=== PATIENT | male | born 1995 | race Caucasian/White ===

== ENCOUNTER 2023-09-26 11:47 | Observation (INO) | payer BC ==
[~2023-09-26] VITALS: Ht 165.1 cm; Wt 55.4 kg
[~2023-09-26 11:47] MED LIST: NEBI10TA PO; TEST200I14 SC; THERTAB52 PO
[2023-09-26] MEDS: LR 1,000 ML IV SCH ×2 (13:10→21:22)
[2023-09-26] MEDS ORDERED: ONDANSETRON 4MG 2ML VIAL As Ordered ONE (14:00)
[2023-09-26] MEDS ORDERED: SUGAMMADEX SODIUM 500 MG/5 ML VIAL (BRIDION) As Ordered ONE (14:00)
[2023-09-26] MEDS ORDERED: LIDOCAINE 2% 100MG/5ML SDV (FOR ANES.) As Ordered ONE (14:00)
[2023-09-26] MEDS ORDERED: ROCURONIUM BROMIDE 50MG/5ML VIAL As Ordered ONE (14:00)
[2023-09-26] MEDS ORDERED: propofoL 200 MG/20 ML VIAL As Ordered ONE (14:01)
[2023-09-26] MEDS ORDERED: MIDAZOLAM INJ 2MG/2ML VIAL As Ordered ONE (14:06)
[2023-09-26] MEDS ORDERED: fentaNYL 250 MCG/5 ML INJECTION As Ordered ONE (14:06)
[2023-09-26] MEDS ORDERED: PHENYLephrine 500MCG 5ML (100MCG/ML) SYRINGE As Ordered ONE (14:15)
[2023-09-26] MEDS: ceFAZolin SOD 2 GM in IV 1 EA IV ONE (15:23)
[2023-09-26] MEDS: HEPARIN SOD (PORCINE) 5000UNITS/ML 1ML VIAL/SYRINGE SQ ONE (15:35)
[2023-09-26] MEDS: LIDOCAINE 1% MDV 20ML VIAL As Ordered ONE (15:58)
[2023-09-26] MEDS: EPINEPHrine INJ 1 MG/ML 1ML AMP As Ordered ONE (15:58)
[2023-09-26] MEDS ORDERED: PHENYLEPHRINE 10MG/ML 1ML VIAL As Ordered ONE (16:06)
[2023-09-26] MEDS: GENTAMICIN SULF 80MG/2ML VIAL As Ordered ONE (16:19)
[2023-09-26] MEDS ORDERED: GLYCOPYRROLATE INJ 0.2 MG/ML 2 ML VIAL As Ordered ONE (16:19)
[2023-09-26] MEDS ORDERED: LR 1,000 ML IV SCH (18:45)
[2023-09-26] MEDS ORDERED: HYDROMORPHONE HCL 0.5 MG/ 0.5 ML SYRINGE IV PRN (18:45)
[2023-09-26] MEDS ORDERED: oxyCODONE 5MG TAB PO PRN (18:45)
[2023-09-26] MEDS ORDERED: ONDANSETRON 4MG 2ML VIAL IV PRN ×2 (18:45→19:30)
[2023-09-26] MEDS ORDERED: fentaNYL 100 MCG/2 ML INJECTION IV PRN (18:45)
[2023-09-26] MEDS ORDERED: PERCOCET 5MG/325MG TAB PO PRN (19:30)
[2023-09-26 20:41] VITALS: BP 90/52; TEMP 97.7; O2SAT 97
[2023-09-26 21:15] VITALS: BP 118/50; TEMP 97.5; O2SAT 93
[2023-09-26 21:45] VITALS: BP 115/53; TEMP 97.5; O2SAT 96
[2023-09-26 22:45] VITALS: BP 134/68; TEMP 98.1; O2SAT 96
[2023-09-26] MEDS: ACETAMINOPHEN TAB 650MG DOSE (2X325MG) PO PRN (23:18)
[2023-09-26] MEDS: ceFAZolin SOD 1 GM in D5W MINI-BAG PLUS 50 ML IV SCH (23:18)
[2023-09-26 23:45] VITALS: BP 122/45; TEMP 97.5; O2SAT 94
[2023-09-27 00:45] VITALS: BP 122/47; TEMP 97.7; O2SAT 96
[2023-09-27 01:45] VITALS: BP 119/49; TEMP 97.9; O2SAT 96
[2023-09-27 05:45] VITALS: BP 124/57; TEMP 97.9; O2SAT 99
[2023-09-27 10:10] VITALS: BP 122/64; TEMP 97.9; O2SAT 99
[2023-09-27] MEDS ORDERED: TRAM50TA2 PO (11:06)
[2023-09-27] MEDS: traMADol 50 MG TAB PO PRN (12:32)
== END 2023-09-27 13:30 | disposition home or self-care (01) ==
LOC: M SDC 11:47 → EDSEX 11:47 → M ED INP 19:26 → M MS5PR 21:16
PROVIDERS: ADMIT Plastic Surgery Surgery of the Hand; ATTEND Plastic Surgery Surgery of the Hand
DX: N62 Hypertrophy of breast (principal); F64.0 Transsexualism; Z79.890 Hormone replacement therapy
CPT/HCPCS: 19318; 88305; 96374; 96376; C9290; J0171; J0665; J0690; J1100; J1580; J2250; J2371; J2405; J3010